=== PATIENT | female | born 1970 | race American Indian/Alaskan Native ===

== ENCOUNTER 2019-12-26 09:05 | Emergency (ER) | payer OTHER, MEDICAID, SELFPAY ==
--- NOTE | 2019-12-26 09:14 | ED.ABDPAIN ---
HPI - Abdominal Pain General Chief Complaint: Abdominal Pain Stated Complaint: LUQ pain 12 hours Time Seen by Provider: 12/26/19 09:14 History of Present Illness HPI narrative: 49-year-old morbidly obese homeless woman who typically seeks care in [facility] with complaints of chronic abdominal pain, chronic left shoulder pain, chronic low back pain, chronic hip and ankle pain presents via medics today with multiple chronic complaints. She states that she is nauseated every morning for the last 8 weeks she has complaining about her left shoulder hurting as it has for an extended period of time. She denies fevers or chills. She states that she has had some mild stomach upset because she has been eating slightly different foods than usual. No dysuria, flank pain, hematuria or urgency. No diarrhea or constipation. She takes no chronic medications and does not seek chronic preventative healthcare. She does have a muscle relaxer as well as Naprosyn available to her but does not like to take them as they do not make her feel good. Related Data Allergies Allergy/AdvReac Type Severity Reaction Status Date / Time No Known Drug Allergies Allergy Verified 12/26/19 09:17 Review of Systems Review of Systems Narrative: She reports increasing fatigue over the last number of days and it sounds like she is in a new jail with a cot that is small in uncomfortable Pertinent positive and negative findings as per HPI Patient History Medical History (Updated 12/26/19 @ 10:14 by Margi Espinal MD) Asthma (Acute) Chronic abdominal pain (Acute) Chronic ankle pain (Acute) Chronic back pain (Acute) Chronic hip pain (Acute) Chronic shoulder pain (Acute) Homelessness (Acute) Morbid obesity (Acute) Sleep apnea (Acute) Social History Smoking Status: Unknown if ever smoked Exam Narrative Exam Narrative: General: Morbidly obese, in no acute distress. Able to speak in full sentences HEENT: Moist mucous membranes, normal sclera with reactive pupils, Neck: No JVD, supple Respiratory: Lungs are clear to auscultation, no wheezing no rales no rhonchi. Full and symmetrical air movement Cardiac: Regular rate and rhythm no murmurs no bruits Abdomen: Soft nontender good bowel tones, no flank pain Skin: Warm and dry, no rashes Neurologic: Grossly neurologically intact with no obvious asymmetries or abnormalities Extremities: No trauma, well perfused Psych: Cooperative, poor insight, fluent speech patterns with no evidence of hallucinations Initial Vital Signs Initial Vital Signs: Vital Signs Temperature 98.6 F 12/26/19 09:17 Pulse Rate 66 12/26/19 09:17 Respiratory Rate 17 12/26/19 09:17 Blood Pressure 165/102 H 12/26/19 09:17 Pulse Oximetry 100 12/26/19 09:17 Course Orders Ordered: ED Orders 12/26/19 09:30 Urinalysis and Microscopic Stat 12/26/19 09:31 EKG-12 Lead Stat 12/26/19 09:40 Complete Blood Count AUTO DIFF Stat Comprehensive Metabolic Panel Stat Lipase Stat Vital Signs Vital signs: Vital Signs - 8 hr 12/26/19 09:17 Temperature 98.6 F Pulse Rate 66 Respiratory Rate 17 Blood Pressure 165/102 H Pulse Oximetry 100 MDM - Abdominal Pain Medical Records Attestation: I reviewed the patient's medical records. Medical records narrative: Records from [facility] reviewed. Seen November 26 with complaints of left shoulder pain and November 23 with similar. Has medications and x-rays and ortho follow-up recommended and has not been able/willing to comply with any recommendations Lab Data Attestation: I reviewed the patient's lab results. Result diagrams: 12/26/19 09:40 12/26/19 09:40 Labs: Lab Results 12/26/19 12/26/19 Range/Units 09:40 09:40 WBC 7.6 (4.5-11.0) X10^3/uL RBC 4.57 (4.0-5.2) X10^6/uL Hgb 12.7 (12.0-16.0) g/dL Hct 38.7 (36-46) % MCV 84.6 (80-100) fL MCH 27.8 (26-34) PG MCHC 32.9 (30-36) % RDW 15.1 H (11.6-14.8) % Plt Count 284 (150-400) X10^3/uL Neut % (Auto) 74.5 (50-75) % Lymph % (Auto) 18.1 L (25-40) % [place] % (Auto) 6.0 (3-14) % Eos % (Auto) 1.0 L (2-4) % Baso % (Auto) 0.4 (0-2) % Neut # (Auto) 5700 (6660-7157) /uL Lymph # (Auto) 1400 (7522-7125) /uL [place] # (Auto) 500 (0-900) /uL Eos # (Auto) 100 (0-450) /uL Baso # (Auto) 0 (0-100) /uL Sodium 139 (137-145) mmol/L Potassium 4.0 (3.4-5.1) mmol/L Chloride 103 (98-107) mmol/L Carbon Dioxide 34 H (22-32) mmol/L BUN 16 (7-17) mg/dL Creatinine 0.64 (0.52-1.04) mg/dL Estimated GFR > 60.0 (>60) mL/min BUN/Creatinine Ratio 25.0 H (6-22) Glucose 110 H (70-100) mg/dL Calcium 9.1 (8.4-10.2) mg/dL Total Bilirubin 0.4 (0.2-1.3) mg/dL AST 21 (14-36) IU/L ALT 19 (<35) IU/L Alkaline Phosphatase 79 (38-126) U/L Total Protein 7.2 (6.3-8.2) g/dL Albumin 3.8 (3.5-5.0) g/dL Globulin 3.4 (1.7-4.1) g/dL Albumin/Globulin Ratio 1.1 (1.0-2.8) Lipase 129 (23-300) U/L MDM Narrative Medical decision making narrative: 49-year-old woman with multiple chronic complaints including left shoulder pain. Has been x-rayed previously and she has been referred to orthopedics. At this point I do not have any additional options for her she is using the shoulder and arm freely in the emergency department without any obvious impingement issues or acute fractures. Labs are reassuring no evidence of pancreatitis this time. Blood pressure is significantly elevated and I suspect that chronic hypertension may be an issue that she needs to follow-up as an outpatient. Given her current homeless status unfortunately I believe that accessing any additional medical care is going to be a challenge for this woman will give her are access line to see if we can provide any additional help. She is safe for home discharge Discharge Plan Departure Patient Disposition: Home Clinical Impression: Chronic shoulder pain Qualifiers: Laterality: left Qualified Code(s): M25.512 - Pain in left shoulder Abdominal pain Qualifiers: Abdominal location: left upper quadrant Qualified Code(s): R10.12 - Left upper quadrant pain Discharge Date/Time: 12/26/19 11:05 Instructions: DI for Shoulder Pain Activity Restrictions/Additional Instructions: Thank you for coming in today A x-rays that were done in mid October on [facility] reviewed of your shoulder and do not show any acute injury. It does not make sense to repeat these without any new trauma. Labs done today in the emergency department are reassuring. There is no evidence of pancreatitis or infection. I do not have a full explanation for the chronic abdominal pain that you are experiencing Unfortunately with your chronic medical issues, there is little I am able to help with from the emergency department you do need to establish care with a primary care physician and would likely benefit from seeing an orthopedic surgeon regarding the left shoulder pain. You can contact our [facility] at [phone] to see if they can help you more effectively get into a primary care physician so he can access medical care to get to the help that you actually need. I wish you the best
[2019-12-26 09:17] VITALS: BP 165/102; PULSE 66; RESP 17; TEMP 37; O2SAT 100; BMI 62.2
[2019-12-26 09:49] LABS: Add Manual Diff / Slide Review NO; Basophils Absolute Auto 0 /uL (0-100); Basophils Percent Auto 0.4 % (0-2); Eosinophils Absolute Auto 100 /uL (0-450); Hematocrit 38.7 % (36-46); Hemoglobin 12.7 g/dL (12.0-16.0); Lymphocytes Absolute Auto 1400 /uL (1100-4500); Lymphocytes Percent Auto 18.1 % (25-40); Mean Corpuscular HGB Conc 32.9 % (30-36); Mean Corpuscular Hemoglobin 27.8 PG (26-34); Mean Corpuscular Volume 84.6 fL (80-100); Monocytes Absolute Auto 500 /uL (0-900); Neutrophils Absolute Auto 5700 /uL (1500-7000); Neutrophils Percent Auto 74.5 % (50-75); Platelet Count 284 X10^3/uL (150-400); Red Blood Cell Count 4.57 X10^6/uL (4.0-5.2); Red Cell Distribution Width 15.1 % (11.6-14.8); White Blood Cell Count 7.6 X10^3/uL (4.5-11.0)
[2019-12-26 10:02] LABS: Alanine Aminotransferase 19 IU/L (<35); Albumin 3.8 g/dL (3.5-5.0); Albumin Globulin Ratio 1.1 (1.0-2.8); Alkaline Phosphatase 79 U/L (38-126); Aspartate Aminotransferase 21 IU/L (14-36); Bilirubin Total 0.4 mg/dL (0.2-1.3); Blood Urea Nitrogen 16 mg/dL (7-17); Calcium 9.1 mg/dL (8.4-10.2); Carbon Dioxide 34 mmol/L (22-32); Chloride 103 mmol/L (98-107); Estimated Glomerular Filt Rate > 60.0 mL/min (>60); Globulin 3.4 g/dL (1.7-4.1); Glucose 110 mg/dL (70-100); HEMOLYSIS < 15 (0-50); Lipase 129 U/L (23-300); Sodium 139 mmol/L (137-145); Total Protein 7.2 g/dL (6.3-8.2)
--- NOTE | 2019-12-26 10:19 | PC.NURSE ---
labs drawn,iv not patent
[2019-12-26 10:32] VITALS: BP 143/86; PULSE 68; RESP 22; O2SAT 95
== END 2019-12-26 11:05 | disposition home or self-care (01) ==
PROVIDERS: Emergency Provider Emergency Medicine
DX: M25.512 Pain in left shoulder (principal); R10.12 Left upper quadrant pain; M54.5 Low back pain; I10 Essential (primary) hypertension; R07.9 Chest pain, unspecified
CPT/HCPCS: 36415; 80053; 83690; 85025; 93005; 99283; 99284